=== PATIENT | male | born 1945 | race Caucasian/White ===

== ENCOUNTER 2025-03-09 08:03 | Inpatient (IN) | payer OTHER ==
[~2025-03-09] VITALS: Ht 180.3 cm; Wt 119.2 kg
[2025-03-09] VITALS (9 sets, daily range): BP systolic 101–131; BP diastolic 77–98
[~2025-03-09 08:03] MED LIST: NAPR550 PO; OXYACE5T PO; PROM25 PO
[2025-03-09 08:38] LABS: BASOPHILS ABSOLUTE AUTO 0.04 K/mm3 (0.00-0.23); BASOPHILS PERCENT AUTO 1 % (0-2); EOSINOPHILS ABSOLUTE AUTO 0.06 K/mm3 (0.00-0.68); EOSINOPHILS PERCENT AUTO 1 % (0-6); Hematocrit 43.3 % (37.0-53.0); Hemoglobin 14.8 g/dL (13.5-17.5); IMMATURE GRAN ABSOLUTE AUTO 0.01 K/mm3 (0.00-0.10); IMMATURE GRAN PERCENT AUTO 0 % (0-1); LYMPHOCYTES ABSOLUTE AUTO 0.98 K/mm3 (0.84-5.20); LYMPHOCYTES PERCENT AUTO 12 % (21-46); MONOCYTES ABSOLUTE AUTO 1.12 K/mm3 (0.16-1.47); MONOCYTES PERCENT AUTO 13 % (4-13); Mean Corpuscular HGB Conc 34.2 g/dL (31.5-36.5); Mean Corpuscular Volume 96 fL (80-100); NEUTROPHILS ABSOLUTE AUTO 6.18 K/mm3 (1.96-9.15); NEUTROPHILS PERCENT AUTO 74 % (41-73); NRBC ABSOLUTE 0.00 K/mm3 (0.00-0.02); NRBC Auto 0.0 /100 WBC (0.0-0.2); Platelet Count 146 K/mm3 (150-400); RDW Coefficient Variation 14.4 % (11.7-14.2); RDW Standard Deviation 50.3 fL (35.1-46.3)
[2025-03-09] MEDS ORDERED: ASPI81CH PO (08:39)
[2025-03-09] MEDS ORDERED: B-COMPLEX1 EACH PO (08:39)
[2025-03-09] MEDS ORDERED: VITAMIN D350 MC3 PO (08:40)
[2025-03-09] MEDS ORDERED: GABA300 PO (08:40)
[2025-03-09] MEDS ORDERED: ICAPS AREDS2 PO (08:41)
[2025-03-09] MEDS ORDERED: LIDO700A20 TOP (08:42)
[2025-03-09] MEDS ORDERED: MIRALAX17 GM PO (08:42)
[2025-03-09] MEDS ORDERED: MULVITA PO (08:42)
[2025-03-09] MEDS ORDERED: OMEP20ER PO (08:42)
[2025-03-09] MEDS ORDERED: CLOP75 PO (08:43)
[2025-03-09] MEDS ORDERED: MIDO5 PO (08:43)
[2025-03-09] MEDS ORDERED: ATOR40TA PO (08:43)
[2025-03-09] MEDS ORDERED: TAMS.4ER PO (08:44)
[2025-03-09 08:50] LABS: Alanine Aminotransfer (ALT/SGP 128.0 U/L (12-78); Albumin, Blood 2.3 g/dL (3.4-5.0); Albumin/Globulin Ratio 0.6 (0.8-1.8); Anion Gap 11.0 mmol/L (3-11); Aspartate Aminotrans (AST/SGOT 387.0 U/L (12-37); Bilirubin, Total 3.3 mg/dL (0.1-1.0); Blood Urea Nitrogen 21.0 mg/dL (8-24); CO2, Blood 23.0 mmol/L (21-32); Calcium, Blood 9.7 mg/dL (8.5-10.1); Chloride, Blood 101.0 mmol/L (98-108); Creatinine, Blood 0.91 mg/dL (0.60-1.20); Globulin, Blood 3.9 g/dL (2.2-4.0); Glucose, Blood 87.0 mg/dL (70-99); Potassium, Blood 4.3 mmol/L (3.5-5.5); Sodium, Blood 131.0 mmol/L (136-145); Total Protein, Blood 6.2 g/dL (6.4-8.2)
[2025-03-09 08:52] LABS: Prothrombin Time Results 13.7 Sec (9.7-11.5)
[2025-03-09 12:41] LABS: Source, Urine Clean Catch
[2025-03-09 13:03] LABS: Color, Urine Amber (P-Yellow); Glucose Qualitative, Urine Neg (Neg); Ketones, Urine Neg (Neg); Leukocyte Esterase, Urine 1+ (Neg); Protein, Urine 2+ (Neg); Specific Gravity, Urine 1.020 (1.003-1.022); Urobilinogen, Urine 3+ (Normal)
[2025-03-09 13:04] LABS: Bilirubin, Urine 1+ (Neg)
--- NOTE | 2025-03-09 16:13 | NUR ---
MET WITH PT AND GABBY IN ROOM. PT DRIFTS IN AND OUT OF SLEEP DURING VISIT, BUT AWAKENS TO DISCUSS POLST. WE REVIEWED THE CHOICES, PT STATES HE WANTS CODE STATUS DNR. POLST FILLED OUT WITH PT, SIGNED BY . DR ALSO SIGNED AND GAVE V.O FOR DNR. POLST SENT TO REGISTRY AND MED RECORDS. PT HERE WITH SEVERE LIVER CIRRHOSIS. NOTED PER JUANI RECORDS A NODULE NOTED IN HIS LUNG, AND A MASS IN HIS LIVER. PT IS UNAWARE OF THE NODULE AND MASS FOR NOW.
--- NOTE | 2025-03-09 17:28 | NUR ---
THE PT DID REFUSE TO WEAR HIS DNR BAND. DNR BAND PLACED ON THE COMPUTER IN THE PT'S ROOM.
--- NOTE | 2025-03-09 23:38 | NUR ---
MD NOTIFICATION MD CAME TO PT ROOM TO EVALUATE PT BLISTERS ON PT BUTTOCKS. PT REPORTS IT IS A TYPE OF HERPES AND HASNT STARTED THE MEDICATION FOR IT. SKIN PHOTOGRAPHED AND MD EVALUATED LESIONS. PT WILL BE ON CONTACT AT THIS TIME. WAITING TO SEE IF MEDICATIONS TO START.
[2025-03-10] MEDS ORDERED: ACYCLOVIR SODIUM IV SCH
[2025-03-10] MEDS ORDERED: DEXTROSE 5% IV SCH
--- NOTE | 2025-03-10 00:59 | NUR ---
RN TO TRANSFER PT TO MEDICAL UNIT ROOM 356 PT ALERT AND ORIENTED FOR FOUNDRY FINISHER. PT TOOK ALL MEDICATIONS WITHOUT ANY PROBLEM. VSS, MAINTAINED O2 SATS ON ROOM AIR. PT ENDORSES BM DURING DAY SHIFT. PT ON CONTRACT LEAD IN NSR TO ST W FIRST DEGREE AV BLOCK. AGED TO ASSESS PT LESIONS ON BUTTOCKS. PT ENDORSING HX OF HERPES BUT UNKNOWN WHAT MEDICATION HE WAS TO START THIS WEEK ON. MD PLACED PT ON CONTACT PRECAUTIONS AND STARTED IV 500 MG ACYCLOVIR Q 12. GIVING REPORT TO ELLE.
[2025-03-10 01:33] VITALS: BP 101/70
[2025-03-10 04:59] VITALS: BP 110/54
[2025-03-10 05:12] LABS: BASOPHILS ABSOLUTE AUTO 0.04 K/mm3 (0.00-0.23); BASOPHILS PERCENT AUTO 1 % (0-2); EOSINOPHILS ABSOLUTE AUTO 0.06 K/mm3 (0.00-0.68); EOSINOPHILS PERCENT AUTO 1 % (0-6); Hematocrit 41.9 % (37.0-53.0); Hemoglobin 14.0 g/dL (13.5-17.5); IMMATURE GRAN ABSOLUTE AUTO 0.03 K/mm3 (0.00-0.10); IMMATURE GRAN PERCENT AUTO 0 % (0-1); LYMPHOCYTES ABSOLUTE AUTO 1.03 K/mm3 (0.84-5.20); LYMPHOCYTES PERCENT AUTO 13 % (21-46); MONOCYTES ABSOLUTE AUTO 1.13 K/mm3 (0.16-1.47); MONOCYTES PERCENT AUTO 14 % (4-13); Mean Corpuscular HGB Conc 33.4 g/dL (31.5-36.5); Mean Corpuscular Volume 95 fL (80-100); NEUTROPHILS ABSOLUTE AUTO 5.74 K/mm3 (1.96-9.15); NEUTROPHILS PERCENT AUTO 72 % (41-73); NRBC ABSOLUTE 0.00 K/mm3 (0.00-0.02); NRBC Auto 0.0 /100 WBC (0.0-0.2); Platelet Count 150 K/mm3 (150-400); RDW Coefficient Variation 14.6 % (11.7-14.2); RDW Standard Deviation 50.6 fL (35.1-46.3)
[2025-03-10 05:40] LABS: Alanine Aminotransfer (ALT/SGP 132.0 U/L (12-78); Albumin, Blood 2.2 g/dL (3.4-5.0); Albumin/Globulin Ratio 0.6 (0.8-1.8); Anion Gap 11.0 mmol/L (3-11); Aspartate Aminotrans (AST/SGOT 385.0 U/L (12-37); Bilirubin, Total 4.0 mg/dL (0.1-1.0); Blood Urea Nitrogen 21.0 mg/dL (8-24); CO2, Blood 24.0 mmol/L (21-32); Calcium, Blood 10.0 mg/dL (8.5-10.1); Chloride, Blood 100.0 mmol/L (98-108); Creatinine, Blood 0.93 mg/dL (0.60-1.20); Globulin, Blood 3.6 g/dL (2.2-4.0); Glucose, Blood 92.0 mg/dL (70-99); Potassium, Blood 4.2 mmol/L (3.5-5.5); Sodium, Blood 131.0 mmol/L (136-145); Total Protein, Blood 5.8 g/dL (6.4-8.2)
--- NOTE | 2025-03-10 05:42 | NUR ---
SHIFT SUMMARY PT TRANSFERRED FROM PCU AT 0130. PT [place]- A&O X3-4 AND ABLE TO MAKE NEEDS KNOWN. CONTACT ISOLATION MAINTAINED FOR POSSIBLE SHINGLES RASH BUTTOCKS. LESSIONS MOSTLY SCABBED, AND ONLY 1 LESSION NOTED TO RIGHT BUTTOCK WITH MOST OF RASH ON LEFT BUTTOCK. PT IS A 1 ASSIST OOB TO TRANSFER TO BED. TELE SHOWING SR WITH 1ST DEG AV BLOCK. PT ON ROOM AIR WITH CONTINUOUS PULSE OX IN PLACE. ABD IS FIRMLY DISTENDED. PLAN FOR ABD ULTRASOUND THIS AM. PT SLEPT INTERMITTENTLY DURING THE NIGHT.
--- NOTE | 2025-03-10 06:29 | NUR ---
PT'S , GABBY, NOTIFIED BY PHONE OF PATIENT'S TRANSFER TO THE MEDICAL FLOOR.
[2025-03-10 08:40] VITALS: BP 107/68
[2025-03-10] MEDS ORDERED: Cholecalciferol 1000 Unit Tablet (=25MCG) PO SCH (09:00)
[2025-03-10] MEDS ORDERED: Vitamin B Complex 1 EA Softgel PO SCH (09:00)
[2025-03-10] MEDS ORDERED: Lidocaine 4% 1 Patch TOP SCH (09:00)
[2025-03-10] MEDS ORDERED: Enoxaparin 40 MG/0.4 ML SYR SC SCH (09:00)
[2025-03-10] MEDS ORDERED: Multivitamins 1 Tab PO SCH (09:00)
[2025-03-10] MEDS ORDERED: Beta-Carotene (A) W-C & E/Min 1 Tab PO SCH (09:00)
[2025-03-10 12:55] VITALS: BP 121/69
[2025-03-10] MEDS ORDERED: Norco 7.5-3251 EACH PO (15:18)
[2025-03-10] MEDS ORDERED: OCUVITE BLUE L1 EACH PO (15:19)
[2025-03-10 16:35] VITALS: BP 121/80
--- NOTE | 2025-03-10 17:45 | NUR ---
SUMMARY- PT A/O X3, [place] AND FORGETFUL. AT BEDSIDE UNTIL AFTER LUNCH. INVOLVED IN CARE. PT HAS OBESE/DISTENDED ABD. STAETES PRESURE DISCOMFORT. PT STILL TOLERATING FOOD AND FLUIDS. BUT STATES IT'S A LITTLE DIFFICULT TO BREATH BECAUSE OF THE PRESURE ON HIS ABD. PT'S LUNGS WITH FINE CX BILAT BASES. RESP EVEN UNLABORED ON ROOM AIR, CONT PULSE OX FOR HX SLEEP APNEA, DECLINES USE OF CPAP. HAD ABD U.S. TODAY. HELD BLOOD THINNERS IN CASE OF PROCEDURE NEEDED. PT HAS TELE SR 1ST DEG AVB. CONT OF B/B. WILL REPORT TO NOC RN
--- NOTE | 2025-03-10 17:48 | NUR ---
CALLED DR MCKEON APPROX [phone] NOTIFIED THAT PT IS HAVING LOW BACK PAIN (CHRONIC) AND ABD DISCOMFORT FROM [facility]IT[facility]. STATES RECENT RX FOR NORCO AT HOME FOR BACK PAIN. DR St STATES SHE WOULD ADDRESS THIS AND WRITE FOR SOMETHING FOR PAIN.
[2025-03-10] MEDS ORDERED: HYDROcodone 5-APAP 325 TAB PO PRN (19:35)
[2025-03-10 19:53] VITALS: BP 128/74
[2025-03-11 00:39] VITALS: BP 112/78
[2025-03-11 04:56] VITALS: BP 132/75
[2025-03-11 05:27] LABS: BASOPHILS ABSOLUTE AUTO 0.02 K/mm3 (0.00-0.23); BASOPHILS PERCENT AUTO 0 % (0-2); EOSINOPHILS ABSOLUTE AUTO 0.05 K/mm3 (0.00-0.68); EOSINOPHILS PERCENT AUTO 1 % (0-6); Hematocrit 42.2 % (37.0-53.0); Hemoglobin 14.2 g/dL (13.5-17.5); IMMATURE GRAN ABSOLUTE AUTO 0.03 K/mm3 (0.00-0.10); IMMATURE GRAN PERCENT AUTO 0 % (0-1); LYMPHOCYTES ABSOLUTE AUTO 0.89 K/mm3 (0.84-5.20); LYMPHOCYTES PERCENT AUTO 10 % (21-46); MONOCYTES ABSOLUTE AUTO 1.13 K/mm3 (0.16-1.47); MONOCYTES PERCENT AUTO 13 % (4-13); Mean Corpuscular HGB Conc 33.6 g/dL (31.5-36.5); Mean Corpuscular Volume 94 fL (80-100); NEUTROPHILS ABSOLUTE AUTO 6.56 K/mm3 (1.96-9.15); NEUTROPHILS PERCENT AUTO 76 % (41-73); NRBC ABSOLUTE 0.00 K/mm3 (0.00-0.02); NRBC Auto 0.0 /100 WBC (0.0-0.2); Platelet Count 143 K/mm3 (150-400); RDW Coefficient Variation 14.6 % (11.7-14.2); RDW Standard Deviation 50.1 fL (35.1-46.3)
[2025-03-11 05:48] LABS: Alanine Aminotransfer (ALT/SGP 154.0 U/L (12-78); Albumin, Blood 2.2 g/dL (3.4-5.0); Albumin/Globulin Ratio 0.6 (0.8-1.8); Anion Gap 10.0 mmol/L (3-11); Aspartate Aminotrans (AST/SGOT 403.0 U/L (12-37); Bilirubin, Total 4.7 mg/dL (0.1-1.0); Blood Urea Nitrogen 20.0 mg/dL (8-24); CO2, Blood 25.0 mmol/L (21-32); Calcium, Blood 9.9 mg/dL (8.5-10.1); Chloride, Blood 99.0 mmol/L (98-108); Creatinine, Blood 0.94 mg/dL (0.60-1.20); Globulin, Blood 3.8 g/dL (2.2-4.0); Glucose, Blood 96.0 mg/dL (70-99); Potassium, Blood 4.1 mmol/L (3.5-5.5); Sodium, Blood 130.0 mmol/L (136-145); Total Protein, Blood 6.0 g/dL (6.4-8.2)
--- NOTE | 2025-03-11 07:56 | NUR ---
SHIFT SUMMARY; DOES NOT REMEMBER TO USE CALL LIGHT. UP STANDING AT BEDSIDE TO VOID, URINE VERY DARK, PLESANT TO WORK WITH. AND TELE SR WITH FIRST DEGREE BLOCK. REMAINS IN CONTACT ISOLATION FOR SHINGLES.
[2025-03-11 08:38] VITALS: BP 139/78
[2025-03-11] MEDS ORDERED: Enoxaparin 40 MG/0.4 ML SYR SC SCH (13:00)
[2025-03-11 16:24] VITALS: BP 133/89
--- NOTE | 2025-03-11 17:13 | NUR ---
SUMMARY- PT A/O X3. PT FORGETFUL AND TRIES TO GET OOB WITHOUG ASSIST. WAS IN THE ROOM MOST OF THE DAY TO ASSIST PT. INCRASE IN LACTALOSE. PT HAD 2 XLG LIQUID BM'S. TOLERATING FOOD AND FLUIDS. STRICT I/O. INCREASE IN DIURETICS, PT VOIDING IN URINAL. PT HAD PT AND OT TODAY. DURING PT PT BECAME WEAK AND DIZZY AND NEEDED TO SIT DOWN. CHECKED BP WAS 136/78- HR 90, ZIGZAGGER CHECKED AND DID NOT SEE ANY CHANGE IN RHYTHM. PT RECOVERED QUICKLY. PT SAT UP IN CHAIR AFTER LUNCH FOR A FEW HOURS AND GOT UP TO BATHROOM SBA WITH WALKER, TOLEARTING ACT WELL FOR MOST OF THE DAY. ABD REMAINS DISTENDED/TAUGHT AND PT STAETS UNCOMFORTABLE. MEDICATED THIS AM WITH NORCO WHICH HELPED RELEIVE CHRONIC BACK PAIN BUT STATES HIS ABD IS UNCOMFORTABLE NO MATTER WHAT. WILL REPORT TO NOC RN
[2025-03-11 19:47] VITALS: BP 118/89
[2025-03-12 03:29] VITALS: BP 135/91
[2025-03-12 05:17] LABS: BASOPHILS ABSOLUTE AUTO 0.02 K/mm3 (0.00-0.23); BASOPHILS PERCENT AUTO 0 % (0-2); EOSINOPHILS ABSOLUTE AUTO 0.02 K/mm3 (0.00-0.68); EOSINOPHILS PERCENT AUTO 0 % (0-6); Hematocrit 40.2 % (37.0-53.0); Hemoglobin 14.0 g/dL (13.5-17.5); IMMATURE GRAN ABSOLUTE AUTO 0.03 K/mm3 (0.00-0.10); IMMATURE GRAN PERCENT AUTO 0 % (0-1); LYMPHOCYTES ABSOLUTE AUTO 0.70 K/mm3 (0.84-5.20); LYMPHOCYTES PERCENT AUTO 8 % (21-46); MONOCYTES ABSOLUTE AUTO 1.03 K/mm3 (0.16-1.47); MONOCYTES PERCENT AUTO 12 % (4-13); Mean Corpuscular HGB Conc 34.8 g/dL (31.5-36.5); Mean Corpuscular Volume 92 fL (80-100); NEUTROPHILS ABSOLUTE AUTO 7.17 K/mm3 (1.96-9.15); NEUTROPHILS PERCENT AUTO 80 % (41-73); NRBC ABSOLUTE 0.00 K/mm3 (0.00-0.02); NRBC Auto 0.0 /100 WBC (0.0-0.2); Platelet Count 138 K/mm3 (150-400); RDW Coefficient Variation 14.6 % (11.7-14.2); RDW Standard Deviation 49.6 fL (35.1-46.3)
[2025-03-12 05:40] LABS: Alanine Aminotransfer (ALT/SGP 159.0 U/L (12-78); Albumin, Blood 2.1 g/dL (3.4-5.0); Albumin/Globulin Ratio 0.6 (0.8-1.8); Anion Gap 10.0 mmol/L (3-11); Aspartate Aminotrans (AST/SGOT 402.0 U/L (12-37); Bilirubin, Total 5.4 mg/dL (0.1-1.0); Blood Urea Nitrogen 20.0 mg/dL (8-24); CO2, Blood 23.0 mmol/L (21-32); Calcium, Blood 9.8 mg/dL (8.5-10.1); Chloride, Blood 98.0 mmol/L (98-108); Creatinine, Blood 0.87 mg/dL (0.60-1.20); Globulin, Blood 3.6 g/dL (2.2-4.0); Glucose, Blood 98.0 mg/dL (70-99); Potassium, Blood 4.2 mmol/L (3.5-5.5); Sodium, Blood 127.0 mmol/L (136-145); Total Protein, Blood 5.7 g/dL (6.4-8.2)
--- NOTE | 2025-03-12 07:20 | NUR ---
SHIFT SUMMARY; PATIENT UP TO BR AT LEAST 5 TIMES FOR BM'S. DABLE TO SLEEP INBETWEEN. PLEASANT AND SOME TIMES REMEMBERS TO USE CALL LIGHT. BED ALARM ON.
[2025-03-12 07:49] VITALS: BP 97/68
[2025-03-12 09:47] VITALS: BP 113/70
[2025-03-12 13:07] VITALS: BP 124/82
[2025-03-12 15:18] VITALS: BP 139/81
--- NOTE | 2025-03-12 18:15 | NUR ---
SHIFT SUMMARY PT AOX3-4, [place] AND APPEARS FORGETFUL AT TIMES. BA ON. PT CALLS SOMETIMES, AT THE BS MOST OF THE SHIFT. 1 ASSIST WITH THE FWW TO THE BR BUT USING THE BSC AT THIS TIME AND A MALE PURWICK FOR STRICT I'S AND O'S. NO ACUTE COMPLAINTS. PT UP TO THE CHAIR THIS AFTERNOON. POSSIBLE DC TOMORROW. CALL LIGHT WITHIN REACH, BED LOCKED AND IN THE LOWEST POSITION. WILL REPORT TO ONCOMING NURSE.
[2025-03-12 20:31] VITALS: BP 136/84
[2025-03-13 02:56] VITALS: BP 119/94
--- NOTE | 2025-03-13 04:47 | NUR ---
SHIFT SUMMARY NOC PT A/O X 4, BILATERAL HEARING AIDES. PLEASANT AND COOPERATIVE WITH CARE. VSS. NO ACUTE CHANGES TO REPORT. PT HAD 2 INC AND 1 LOOSE BM DURING SHIFT AND DECLINED BEDTIME DOSE OF LACTULOSE. MEPILEX ON TALI IS C/D/I. PUREWICK IN PLACE SUCTIONIN DARK YELLOW URINE TO GRAVITY. PT HAS POOR PO FLUID INTAKE. PT CURRENTLY RESTING WITH BED ALARM ON, BED IN LOWEST POSITION, AND CALL LIGHT WITHIN REACH.
[2025-03-13 07:11] LABS: BASOPHILS ABSOLUTE AUTO 0.04 K/mm3 (0.00-0.23); BASOPHILS PERCENT AUTO 0 % (0-2); EOSINOPHILS ABSOLUTE AUTO 0.04 K/mm3 (0.00-0.68); EOSINOPHILS PERCENT AUTO 0 % (0-6); Hematocrit 41.7 % (37.0-53.0); Hemoglobin 14.5 g/dL (13.5-17.5); IMMATURE GRAN ABSOLUTE AUTO 0.04 K/mm3 (0.00-0.10); IMMATURE GRAN PERCENT AUTO 0 % (0-1); LYMPHOCYTES ABSOLUTE AUTO 0.79 K/mm3 (0.84-5.20); LYMPHOCYTES PERCENT AUTO 8 % (21-46); MONOCYTES ABSOLUTE AUTO 1.19 K/mm3 (0.16-1.47); MONOCYTES PERCENT AUTO 11 % (4-13); Mean Corpuscular HGB Conc 34.8 g/dL (31.5-36.5); Mean Corpuscular Volume 92 fL (80-100); NEUTROPHILS ABSOLUTE AUTO 8.47 K/mm3 (1.96-9.15); NEUTROPHILS PERCENT AUTO 80 % (41-73); NRBC ABSOLUTE 0.00 K/mm3 (0.00-0.02); NRBC Auto 0.0 /100 WBC (0.0-0.2); Platelet Count 132 K/mm3 (150-400); RDW Coefficient Variation 14.7 % (11.7-14.2); RDW Standard Deviation 49.9 fL (35.1-46.3)
[2025-03-13 07:38] LABS: Alanine Aminotransfer (ALT/SGP 164.0 U/L (12-78); Albumin, Blood 2.1 g/dL (3.4-5.0); Albumin/Globulin Ratio 0.6 (0.8-1.8); Anion Gap 11.0 mmol/L (3-11); Aspartate Aminotrans (AST/SGOT 430.0 U/L (12-37); Bilirubin, Total 6.1 mg/dL (0.1-1.0); Blood Urea Nitrogen 20.0 mg/dL (8-24); CO2, Blood 22.0 mmol/L (21-32); Calcium, Blood 9.5 mg/dL (8.5-10.1); Chloride, Blood 96.0 mmol/L (98-108); Creatinine, Blood 0.9 mg/dL (0.60-1.20); Globulin, Blood 3.7 g/dL (2.2-4.0); Glucose, Blood 86.0 mg/dL (70-99); Potassium, Blood 4.1 mmol/L (3.5-5.5); Sodium, Blood 125.0 mmol/L (136-145); Total Protein, Blood 5.8 g/dL (6.4-8.2)
[2025-03-13 07:40] VITALS: BP 127/73
[2025-03-13 09:22] LABS: HEPATITIS A ANTIBODY, IGM Negative (Negative); HEPATITIS C AB CIA INTERP Negative (Negative); HEPATITIS C ANTIBODY CIA INDEX 0.07 IV
[2025-03-13 12:59] VITALS: BP 123/77
[2025-03-13 17:08] VITALS: BP 144/79
--- NOTE | 2025-03-13 18:07 | NUR ---
SHIFT SUMMARY PT IS A/OX3-4, CONFUSION AND FORGETFUL AT TIMES. HARD OF HEARING. NO ACUTE CHANGES THROUGHOUT THIS SHIFT. X2 LOOSE BM'S THIS SHIFT. 1 PERSON ASSIST WITH FWW TO BSC. AT BEDSIDE THROUGHOUT THIS SHIFT. PT IS PLEASANT AND COOPERATIVE WITH CARE AND CALLS APPROPRAITELY USING THE CALL LIGHT.
[2025-03-13 19:07] VITALS: BP 120/77
[2025-03-14 02:16] VITALS: BP 107/81
--- NOTE | 2025-03-14 03:59 | NUR ---
SHIFT SUMMARY NOC PT A/O X 3-4. [place] AND FORGETFUL AT TIMES. VSS. NO ACUTE CHANGES TO REPORT. AT CHANGE OF SHIFT PT HAD 3RS LOOSE BM OF DAY AND BEDTIME DOSE OF LACTULOSE HELD. PUREWICK IN PLACE WITH DARK YELLOW OUTPUT. PT SLEPT FOR MAJORITY OF SHIFT. PT CURRENTLY RESTING WITH BED IN ALARM ON, BED IN LOWEST POSITION, AND CALL LIGHT WITHIN REACH.
[2025-03-14 05:04] LABS: BASOPHILS ABSOLUTE AUTO 0.02 K/mm3 (0.00-0.23); BASOPHILS PERCENT AUTO 0 % (0-2); EOSINOPHILS ABSOLUTE AUTO 0.02 K/mm3 (0.00-0.68); EOSINOPHILS PERCENT AUTO 0 % (0-6); Hematocrit 43.0 % (37.0-53.0); Hemoglobin 15.2 g/dL (13.5-17.5); IMMATURE GRAN ABSOLUTE AUTO 0.05 K/mm3 (0.00-0.10); IMMATURE GRAN PERCENT AUTO 0 % (0-1); LYMPHOCYTES ABSOLUTE AUTO 0.77 K/mm3 (0.84-5.20); LYMPHOCYTES PERCENT AUTO 7 % (21-46); MONOCYTES ABSOLUTE AUTO 1.25 K/mm3 (0.16-1.47); MONOCYTES PERCENT AUTO 11 % (4-13); Mean Corpuscular HGB Conc 35.3 g/dL (31.5-36.5); Mean Corpuscular Volume 92 fL (80-100); NEUTROPHILS ABSOLUTE AUTO 9.50 K/mm3 (1.96-9.15); NEUTROPHILS PERCENT AUTO 82 % (41-73); NRBC ABSOLUTE 0.00 K/mm3 (0.00-0.02); NRBC Auto 0.0 /100 WBC (0.0-0.2); Platelet Count 136 K/mm3 (150-400); RDW Coefficient Variation 15.0 % (11.7-14.2); RDW Standard Deviation 50.4 fL (35.1-46.3)
[2025-03-14 05:23] LABS: Alanine Aminotransfer (ALT/SGP 186.0 U/L (12-78); Albumin, Blood 2.1 g/dL (3.4-5.0); Albumin/Globulin Ratio 0.6 (0.8-1.8); Anion Gap 10.0 mmol/L (3-11); Aspartate Aminotrans (AST/SGOT 456.0 U/L (12-37); Bilirubin, Total 7.5 mg/dL (0.1-1.0); Blood Urea Nitrogen 23.0 mg/dL (8-24); CO2, Blood 22.0 mmol/L (21-32); Calcium, Blood 10.2 mg/dL (8.5-10.1); Chloride, Blood 95.0 mmol/L (98-108); Creatinine, Blood 0.94 mg/dL (0.60-1.20); Globulin, Blood 3.8 g/dL (2.2-4.0); Glucose, Blood 97.0 mg/dL (70-99); Potassium, Blood 4.4 mmol/L (3.5-5.5); Sodium, Blood 123.0 mmol/L (136-145); Total Protein, Blood 5.9 g/dL (6.4-8.2)
[2025-03-14 07:29] VITALS: BP 141/87
[2025-03-14 12:16] VITALS: BP 150/85
--- NOTE | 2025-03-14 12:41 | NUR ---
THE PATIENT, AND PHYSICIAN HAD A DISCUSSION ABOUT HOSPICE THIS MORNING. THE PATIENT IS AGREEABLE, AND [facility]. THIS PC RN MET WITH WHO REQUESTED WE SPEAK PRIVATELY. WAS TEARFUL. SHE STATES SHE FEELS GUILTY ABOUT HIM GOING TO THE [facility], BUT UNDERSTANDS SHE IS PHYSICALLY UNABLE TO CARE FOR HIM. THE PATIENT REMAINS PLEASANTLY CONFUSED, DENIES PAIN OR SOB AT THIS TIME. IT'S UNCLEAR IF HE HAS THE INSIGHT TO FULLY UNDERSTAND THAT HIS DIAGNOSIS IS TERMINAL. PC RN WILL CONTINUE TO ANSWER ANY QUESTIONS PT AND MAY HAVE.
[2025-03-14 16:34] VITALS: BP 129/75
--- NOTE | 2025-03-14 16:42 | NUR ---
SHIFT SUMMARY: PATIENT HAD ONE STOOL THIS SHIFT, DISCUSSION TO TRANSITION TO HOSPICE AND PLANS WITH [facility]AC[facility]OUGH [facility]; PENDING AT THIS TIME. POSSIBLE TRANSITION TO COMFORT CARE WHILE HERE [facility]ENDING ON [facility]. POLST OUTSIDE OF ROOM TO BE FILLED OUT WITH PATIENT AND HIS 03/15/[address] CORONA. PATIENT IN BED, ALERT, REPORTS FEELING MELANCHOLY, HE OVERALL IS ABLE TO MAKE NEEDS KNOWN. WAS ABLE TO CALL AND REPORT THE NEED TO HAVE A BOWEL MOVEMENT AND WAS ABLE TO GO ON THE BEDSIDE COMMODE. HE CAN BE FORGETFUL, BUT EASILY REDIRECTABLE. CALL LIGHT WITHIN REACH, BED ALARM ON, NO SIGNS OR SYMPTOMS OF DISTRESS, PLAN OF CARE ONGOING.
[2025-03-14 19:19] VITALS: BP 128/77
[2025-03-15 04:32] VITALS: BP 116/76
--- NOTE | 2025-03-15 05:24 | NUR ---
PT A&O X4, VS WNL, UOP WNL, PT WITH NO BM THIS SHIFT, JUST FLATUS, UP TO BSC WITH X1 ASSIST. PT WITH PITTING EDEMA FROM WAIST TO FEET. SKIN FRAILE, PAIN NOTED IN ABDOMEN, ABD TAUGHT, USES CALL SYSTEM APPROPRIATELY. MALE PURWIK UTILIZED. PO INTAKE WNL. PLAN TO D/C WITH HOSPICE PER [facility].
[2025-03-15 07:18] VITALS: BP 127/87
[2025-03-15] MEDS ORDERED: HYDROmorphone HCl/Pf 1MG SYR IV PRN (12:35)
[2025-03-15 13:20] VITALS: BP 133/82
[2025-03-15 16:42] VITALS: BP 125/74
--- NOTE | 2025-03-15 17:31 | NUR ---
SHIFT SUMMARY: NO EVENTS OR CHANGES WITH THE PATIENT THROUGHOUT THE SHIFT. PATIENT DOES APPEAR MORE JAUNDICE TODAY AND ABD MORE DISTENDED; C/O ABD PAIN. PATIENT CONFUSED, BUT EASILY REDIRECTABLE. PATIENT IN ROOM, ON BEDSIDE COMMODE, NOT AT BEDSIDE, PLAN IS FOR PATIENT TO STILL [facility] WITH [facility].
[2025-03-15 19:45] VITALS: BP 138/85
[2025-03-16 04:46] VITALS: BP 130/72
--- NOTE | 2025-03-16 05:03 | NUR ---
PT A&O X4, DOES GET FORGETFULL AT TIMES. VS WNL, PT WITH SOME NOTED APNEA, O2 SATS IN LOW 90'S. UP WITH MOD ASSIST, STILL WITH SEVERE EDEMA IN TRUNK TO FEET. ABDOMEN WITH SEVERE DISTENTION, AND MODERAT PAIN, MEDICATED WITH DILAUDID X 2 THIS SHIFT. PT WITH FRAGILE SKIN. WEARING MALE PURWIK. PLAN TO D/C TO HOSPICE.
[2025-03-16 07:41] VITALS: BP 144/81
[2025-03-16 12:24] VITALS: BP 141/94
[2025-03-16 13:03] VITALS: BP 136/79
--- NOTE | 2025-03-16 13:25 | NUR ---
PATIENT ALERT TO SELF, AND VISITORS. KNOWS HE IS AT THE HOSPITAL BUT UNABLE TO RECALL WHY OR ANY DETAILS. AND MD AT BEDSIDE STATE PATIENT DOES SEEM MORE CONFUSED TODAY. ABLE TO MOVE ALL EXTREMITIES AND MAKE NEEDS KNOWN. PERRLA. COMPLAINS OF INTERMIT BACK AND ABDOMINAL PAIN. LIDOCAINE PATCH PLACED ON LOWER BACK AND MEDICATED PER EMAR FOR PAIN. UP WITH 1PERSON ASSIST AND FWW. Q2 TURNS AND NEEDED. PATIENT REFUSING SOME TURNS. EDUCATED ON PRESSURE RELIEF AND REPOSITIONING. ON ROOM AIR, SATING ABOVE 90%. EVEN AND UNLABORED RESPIRATIONS. LUNG SOUNDS CLEAR AND DIMINISHED. DENIES SOB. NO TELE. SBP 130-140'S. DENIES CHEST PAIN/PRESSURE/PALPITATIONS. IV SALINE LOCKED. DR. PARKER DISCUSSED DISCONTINUING PLAVIX THIS MORNING WITH PATIENT AND FAMILY. TOLERATING DIET. POOR APPEATITE. ATTENDS IN PLACE. MALE PUREWICK. STRICT INTAKE AND OUTPUT. ABDOMIN DISTENDED. DR. PARKER DISCUSSED POSSIBLE PARACENTESIS WITH PATIENT AND FAMILY. HELD LOVENOX PER MD. SKIN WITH SCATTERED BRUISING. RASH TO BOTTOCK. LEFT ELBOW SKIN TEAR, DUE FOR DRESSING CHANGE TOMORROW. 4+ EDEMA TO BLE AND TRUNK. GENERALIZED EDEMA. AT BEDSIDE. CALL LIGHT IN REACH. DENIES NEEDS AT THIS TIME.
--- NOTE | 2025-03-16 16:36 | NUR ---
DR. PARKER TO BEDSIDE TO UPDATE . PATIENT REMAINS CONFUSED. BED BATH GIVEN AND PUREWICK/RIGHT ELBOW DRESSING CHANGED. POOR APPEATITE. VITALS STABLE. DENIES NEEDS AT THIS TIME. BED ALARM IN PLACE. LEAVING FOR NIGHT AND WILL BE BACK TOMORROW MORNING. CALL LIGHT IN REACH.
[2025-03-16 17:43] VITALS: BP 144/66
[2025-03-16 19:30] VITALS: BP 115/67
[2025-03-17 05:43] VITALS: BP 121/94
--- NOTE | 2025-03-17 05:58 | NUR ---
PT ALERT OX3, COULD NOT TELL ME HE WAS IN THE HOSPITAL, OR THE MONTH. PT WITH INCREASED CONFUSION AND DELUSIONS THROUGHOUT NIGHT. VS WNL, UOP WNL, UTILIZING MALE PURWIK. PT WITH MOD TO SEVERE PAIN IN ABDOMEN, MEDICATED WITH DILAUDID X1. NO BM THIS SHIFT. DID NOT ATTEMPT TO GET OOB, BUT BED ALARM IS UTILIZED. USING CALL SYSTEM AT TIME APPROPRIATELY, OTHER TIMES THINKS IT THE PHONE. [facility].
[2025-03-17 07:15] VITALS: BP 137/71
--- NOTE | 2025-03-17 07:37 | NUR ---
ASSUMPTION OF CARE: THIS RN ASSUMED CARE OF PATIENT. AWAKE DURING SHIFT CHANGE REPORT BUT DOES NOT RESPOND TO QUESTIONS AND QUICKLY FALLS BACK ASLEEP. LYING IN BED c HOB ELEVATED. NOTED SEVERE ABD EXTENSION AND YELLOW SKIN AND EYES. BREATHING EVEN AND UNLABORED c RA. BED IN LOWEST POSITION. CALL LIGHT WITHIN REACH. ACUTE NEEDS MET.
[2025-03-17 15:32] VITALS: BP 125/78
--- NOTE | 2025-03-17 18:20 | NUR ---
END OF SHIFT SUMMARY: A&Ox1-2. INCREASINGLY OBTUNDED T/O SHIFT. BREATHING EVEN AND UNLABORED c RA THOUGH BECOMES DYSPNIC WHEN ON SIDE. PUREWICK IN PLACE SECONDARY TO URINARY INCONTINENCE AND LARGE DIURETIC DOSES. NO BM THIS SHIFT DESPITE LACTULOSE. POOR APPETITE TODAY; ABLE TO TAKE SOME PO MEDS c SOME DIFFICULTY SWALLOWING. DOES NOT AMBULATE. EDEMATOUS T/O c PROMINENT JAUNDICE. CHANGES MADE TO MEDS. AT BEDSIDE MOST OF DAY. BED IN LOWEST POSITION, CALL LIGHT WITHIN REACH, ALL NEEDS MET. REPORT TO ONCOMING NURSE.
[2025-03-17 19:30] VITALS: BP 133/76
[2025-03-18] VITALS (28 sets, daily range): BP systolic 63–134; BP diastolic 29–94
--- NOTE | 2025-03-18 03:07 | NUR ---
COUNTERINTELLIGENCE/HUMINT SPECIALIST SUMMARY VSS. SKIN JAUNDICED. MALE PUREWICK IN USE, CHANGED OUT DUE TO LEAKAGE. DARK MARIEL COLOR OF URINE. REPOSITIONED INTERMITTENTLY FOR COMFORT. HAS BEEN RESTING QUIETLY WITH OCCASIONAL INTERRUPTIONS. HAD ONE EPISODE OF AGITATION AND THREW PLANT IN JAR AND BROKE IT, VOICED DIDNT LIKE THE TASTE OF THE WATER IN IT. FRESH CUP OF WATER IN REACH. SEEMED TO CALM DOWN AFTER. CALL LIGHT IN REACH, RAILS UP X 2, BED IN LOW POSITION AND BED ALARM ON FOR SAFETY. WILL CONT TO MONITOR, ASSESS AND CHANGE PT NEEDED.
--- NOTE | 2025-03-18 07:42 | NUR ---
ASSUMPTION OF CARE: THIS RN ASSUMED CARE OF PATIENT FOR SECOND DAY; ACCOMPANIED TODAY BY ORIENTING RNYAHAIRA. ASLEEP DURING SHIFT CHANGE REPORT. LYING SUPINE IN BED. BREATHING SLIGHTLY LABORED c ABDOMINAL RETRACTIONS. WOKE TO VERBAL STIMULATION. HARD OF HEARING BUT ORIENTED AND ANSWERING QUESTIONS CORRECTLY. NOTEDLY JAUNDICE. BED IN LOWEST POSITION. CALL LIGHT WITHIN REACH. ACUTE NEEDS MET.
--- NOTE | 2025-03-18 14:07 | NUR ---
FLUSHED RIGHT WRIST 20G IV SITE WITH 10NS/PATENT.
[2025-03-18] MEDS ORDERED: Bupivacaine 0.5% HCl 5 MG/ML 30MLVIAL ONE (14:12)
[2025-03-18] MEDS ORDERED: CeFAZolin Sodium 2,000 MG in NS 100 ML IV SCH (14:15)
[2025-03-18] MEDS ORDERED: Phenylephrine HCl 100 MCG/ML-NS 10MLSYR (1MG/10ML) ONE (14:53)
[2025-03-18] MEDS ORDERED: HYDROmorphone HCl/Pf 1MG SYR IV PRN ×3 (16:10→18:10)
[2025-03-18] MEDS ORDERED: ePHEDrine Sulfate 50 MG/ML 1ML Injection IV PRN (16:10)
[2025-03-18] MEDS ORDERED: Ondansetron HCl 2 MG / ML 2ML Vial IV PRN (16:10)
[2025-03-18] MEDS ORDERED: FentaNYL Citrate 50 MCG/ML 2 ML Injection IV PRN ×2 (16:10→16:15)
[2025-03-18] MEDS ORDERED: FentaNYL Citrate 50 MCG/ML 2 ML Injection ONE (16:33)
[2025-03-18] MEDS ORDERED: ePHEDrine Sulfate 50 MG/ML 1ML Injection ONE (16:53)
[2025-03-18] MEDS ORDERED: Naloxone HCl 0.4MG / ML 1ML Vial ONE (17:38)
[2025-03-18] MEDS ORDERED: Albumin (Human) 25gm/100ml 100 ML IV ONE (17:40)
[2025-03-18] MEDS ORDERED: Morphine Sulfate 20 MG/1ML 1 ML Oral Syringe SL PRN (18:10)
[2025-03-18] MEDS ORDERED: Atropine Sulfate 1% Opth Soln 2ML BTL SL PRN (18:15)
--- NOTE | 2025-03-18 18:44 | NUR ---
"Spiritual Care | Comfort Care Pt. is on comfort care post surgery. Nurses are at bedside. Spouse arrives and pastoral care and prayer are given. Pts. doctors are present during the prayer. Other family arrived. Facilitated family history and provided a calming presence. EOL Education is given and the Spouse chose [facility] for home. Prayed a blessing over the family. Family verbalized gratitude for the spiritual care support."
--- NOTE | 2025-03-18 18:53 | NUR ---
PT AT 1850. VERIFICATION OF NO PALPABLE RADIAL PULSE, AUSCULTATION OF APICAL PULSE OR BREATH SOUNDS VERIFIED BY ELEANOR SPEAR RN. CHARGE NOTIFIED.
--- NOTE | 2025-03-18 19:45 | NUR ---
DISCHARGE SUMMARY: PATIENT TO OR FOR PLEURX DRAIN PLACEMENT SHORTLY AFTER 1300. AROUND 1600 PT'S STATED SHE WAS GOING TO GO GET SOME GROCIERS. I ADVISED SHE NOT BE FAR I WAS NOT AWARE OF PT'S AND SHE AGREED; WOULD NOT GO HOME TO [place]. AT 1630 RECEIVED CALL FROM PACU STATING HAVING DIFFICULTY MAINTAINING SBP >100. DUE TO PATIENT NOT BEING COMFORT CARE, IT WAS DETERMINTED THROUGH SHARED DECISION MAKING, THAT PATIENT WOULD STAY IN PACU FOR CONTINUED CARDIAC CARE. CALL AT 1730 STATING PATIENT WOULD BE COMING BACK. PACU HAD CONTACT PT'S AND ADVISED SHE RETURN TO HOSPITAL PT'S CONDITION WAS LIKELY IMMINENT. UPON PT ARRIVAL TO MED FLOOR, PATIENT NOTED TO BE HAVING AGONAL BREATHING. GENTLY TRANSFERRED FROM [place] TO ROOM BED. O2 PLACED FOR COMFORT. BHUPENDRA AND THIS RN AT BEDSIDE UNTIL DR. PARKER AND DR. JACKSON TO BEDSIDE. ARRIVED SHORTLY THEREAFTER. ORDER FOR 20MG ROXANOL ADMINISTERED FOR AGONAL BREATHING AND ADMINISTERED AT 1810. PATIENT APNIC AT 1850. NO PALPABLE PULSE. UNABLE TO AUSCULTATE BREATH/LUNG OR HEART SOUNDS. ELEANOR SPEAR RN, VERIFIED TIME OF AT 1850. PER FAMILY, [facility] FOR HOME. ALL BELONGINGS GIVEN TO . THUMB PRINT OBTAINED FROM PATIENT'S LEFT THUMB FOR AND MADE INTO [place] USING [employer] CART. FAMILY LEFT AT 1940. CHARGE NOTIFIED. HOSPITALIST NOTIFIED VIA VOICEMAIL AT 1900.
--- NOTE | 2025-03-18 22:38 | NUR ---
TRANSPORT STAFF HERE TO TAKE PT TO MORTUARY.
== END 2025-03-18 22:42 | DRG 433 ==
LOC: ER 08:03 → MEDS 11:54 → ERHOLD 11:54 → MEDS 12:35 → PCU 12:48 → MEDS 03-10 01:30
PROVIDERS: Emergency Medicine; Internal Medicine; Student in an Organized Health Care Education/Training Program; Surgery; ADMIT Internal Medicine
PROC: 3E03329 Introduction of Other Anti-infective into Peripheral Vein, Percutaneous Approach (ICD-10-PCS; 2025-03-18)
PROC: 3E033XZ Introduction of Vasopressor into Peripheral Vein, Percutaneous Approach (ICD-10-PCS; 2025-03-18)
PROC: 30233J1 Transfusion of Nonautologous Serum Albumin into Peripheral Vein, Percutaneous Approach (ICD-10-PCS; 2025-03-18)
PROC: 0W9G30Z Drainage of Peritoneal Cavity with Drainage Device, Percutaneous Approach (ICD-10-PCS; principal; 2025-03-18 14:00)
DX: K70.31 Alcoholic cirrhosis of liver with ascites (principal); E87.1 Hypo-osmolality and hyponatremia; I50.20 Unspecified systolic (congestive) heart failure; N40.0 Benign prostatic hyperplasia without lower urinary tract symptoms; K76.82 Hepatic encephalopathy; I11.0 Hypertensive heart disease with heart failure; R21 Rash and other nonspecific skin eruption; Z66 Do not resuscitate; Z51.5 Encounter for palliative care; L89.159 Pressure ulcer of sacral region, unspecified stage; K72.10 Chronic hepatic failure without coma; I95.89 Other hypotension; H91.90 Unspecified hearing loss, unspecified ear; E87.70 Fluid overload, unspecified; M48.00 Spinal stenosis, site unspecified; F10.20 Alcohol dependence, uncomplicated; R16.0 Hepatomegaly, not elsewhere classified; K82.8 Other specified diseases of gallbladder; N28.1 Cyst of kidney, acquired; Z86.73 Personal history of transient ischemic attack (TIA), and cerebral infarction without residual deficits; Z96.652 Presence of left artificial knee joint; Z79.02 Long term (current) use of antithrombotics/antiplatelets; Z79.82 Long term (current) use of aspirin; Z79.899 Other long term (current) drug therapy; Z88.5 Allergy status to narcotic agent; Z88.8 Allergy status to other drugs, medicaments and biological substances
CPT/HCPCS: 36415; 76700; 80053; 80074; 81001; 82140; 83690; 85025; 85610; 87086; 93005; 93010; 94762; 97110; 97116; 97162; 97165; 97530; 97535; 99285-25; A9270; C1729; J0690; J1171; J1650; J2312; J2371; J2704; J3010; J7060; J7120; J8499